=== PATIENT | female | born 1960 | race Caucasian/White ===

== ENCOUNTER → 2021-05-10 12:51 | Outpatient (CLI) | payer MEDICAID, SELFPAY ==
[2021-03-18 10:43] VITALS: BMI 24.9
--- NOTE | 2021-05-10 15:21 | PFTCOMP ---
COMPLETE PULMONARY FUNCTION TEST INTERPRETATION Brief HPI: Patient is a 61 year old female, currently under the care of myself, who presents to [facility] for complete pulmonary function tests secondary to diagnosis of COPD. Respiratory therapist reports good effort and reproducible results. Interpretation: Forced expiration spirometry shows a mild large airways obstructive ventilatory defect with an FEV1 of 88% predicted. There is a significant bronchodilator response in FEV1 by strict ATS criteria. Spirograms are of good quality and plateau slowly, indicating slowly emptying areas of the lungs. The respiratory flow volume loop shows decreased expiratory flow rates at all lung volumes consistent with airway obstruction. Lung volumes by body plethysmography show a normal total lung capacity at 5.41 L, 113% predicted. All other lung volumes are within normal limits. Diffusion capacity by carbon monoxide is normal at 87% predicted. The airway resistance is slightly elevated. No previous pulmonary function tests were available for review. Impression: Partially reversible mild large airways obstructive ventilatory defect with preserved diffusion capacity
== END ==
PROVIDERS: PCP Family Medicine; Referring Provider Internal Medicine Critical Care Medicine; Visit Provider Internal Medicine Critical Care Medicine
DX: J44.9 Chronic obstructive pulmonary disease, unspecified (principal); R91.1 Solitary pulmonary nodule
CPT/HCPCS: 94060; 94726; 94729